=== PATIENT | male | born 1965 | race Caucasian/White ===

== ENCOUNTER 2020-10-12 17:41 | Emergency (ER) | payer OTHER ==
[~2020-10-12] VITALS: Ht 193 cm; Wt 170.1 kg
[~2020-10-12 17:41] MED LIST: BISHYD10; CRUTCH USE; HYDACE5 PO; IBUP800 PO
== END 2020-10-12 20:53 | disposition home or self-care (01) ==
LOC: ER 17:41
DX: U07.1 COVID-19 (principal); I10 Essential (primary) hypertension; E11.9 Type 2 diabetes mellitus without complications; Z91.013 Allergy to seafood; Z79.899 Other long term (current) drug therapy
CPT/HCPCS: 99284-25; M0243; Q0243

== ENCOUNTER 2022-07-18 05:42 | Inpatient (IN) | payer OTHER ==
[2022-07-18] VITALS (9 sets, daily range): BP systolic 120–151; BP diastolic 89–118
[~2022-07-18] VITALS: Ht 193 cm; Wt 151.0 kg
[2022-07-18] MEDS ORDERED: ROSUVASTATIN CA10 MG PO (06:09)
[2022-07-18 06:13] LABS: BASOPHILS ABSOLUTE AUTO 0.04 K/mm3 (0.00-0.23); BASOPHILS PERCENT AUTO 1 % (0-2); EOSINOPHILS ABSOLUTE AUTO 0.09 K/mm3 (0.00-0.68); EOSINOPHILS PERCENT AUTO 1 % (0-6); Hematocrit 51.6 % (37.0-53.0); Hemoglobin 17.9 g/dL (13.5-17.5); IMMATURE GRAN ABSOLUTE AUTO 0.04 K/mm3 (0.00-0.10); IMMATURE GRAN PERCENT AUTO 1 % (0-1); LYMPHOCYTES ABSOLUTE AUTO 2.01 K/mm3 (0.84-5.20); LYMPHOCYTES PERCENT AUTO 23 % (21-46); MONOCYTES ABSOLUTE AUTO 0.68 K/mm3 (0.16-1.47); MONOCYTES PERCENT AUTO 8 % (4-13); Mean Corpuscular HGB Conc 34.7 g/dL (31.5-36.5); Mean Corpuscular Volume 89 fL (80-100); Mean Platelet Volume 11.6 fL (9.1-12.4); NEUTROPHILS ABSOLUTE AUTO 5.85 K/mm3 (1.96-9.15); NEUTROPHILS PERCENT AUTO 67 % (41-73); Platelet Count 153 K/mm3 (150-400); RDW Coefficient Variation 12.8 % (11.7-14.2); RDW Standard Deviation 41.6 fL (35.1-46.3); Red Blood Cell Count 5.77 M/mm3 (4.30-5.90); White Blood Cell Count 8.71 K/mm3 (4.00-11.30)
[2022-07-18 06:33] LABS: Albumin, Blood 4.1 g/dL (3.4-5.0); Albumin/Globulin Ratio 1.1 (0.8-1.8); Bilirubin, Total 0.7 mg/dL (0.1-1.0); Bun/Creatinine Ratio 12.9 (12.0-20.0); Calcium, Blood 9.2 mg/dL (8.5-10.1); Creatinine, Blood 0.85 mg/dL (0.60-1.20); Globulin, Blood 3.7 g/dL (2.2-4.0); Magnesium, Blood 2.1 mg/dL (1.6-2.4); Potassium, Blood 4.2 mmol/L (3.5-5.5); Total Protein, Blood 7.8 g/dL (6.4-8.2)
--- NOTE | 2022-07-18 09:36 | NUR ---
PT ARRIVED TO PCU ROOM 16 FROM THE ER. PT ABLE TO INDEPENDENTLY TRANSFER FROM STRETCHER TO HOSPITAL BED. PT ACCOMPANIED BY SPOUSE REYNOLD. PT CONSENTED THIS 2ND YEAR [facility] [place], [place] RN STUDENT TO PARTICIPATE IN CARE TODAY.
[2022-07-18 09:54] LABS: Anti-Xa UFH, PHA Monitoring <0.10 IU/mL; International Normalized Ratio 1.04; Prothrombin Time Results 10.9 Sec (9.7-11.5)
--- NOTE | 2022-07-18 11:52 | NUR ---
PT AMBULATED TO THE BATHROOM AND HEART RATE WENT UP TO 150S BPM. PT DENIED CHEST PAIN AT TIME OF EVENT. REPORTED MILD SOB ON EXERTION AND RECOVERED WITH REST WITHIN A COUPLE MINUTES. THIS BAGGER AND STOCK HANDLER HELPER WAS NOTIFIED OF INCREASED RATE BY CABINET MOUNTER JANEY ADKINS.
--- NOTE | 2022-07-18 16:42 | NUR ---
SPOKE WITH DR VEGAS REGARDING PATIENT BLOOD PRESSURE, NEW ORDERS RECEIVED
--- NOTE | 2022-07-18 16:50 | NUR ---
PT AMBULATED TO THE BATHROOM AND HEART RATE INCREASED TO THE 150S. PT DENIED SHORTNESS OF BREATH OR CHEST PAIN DURING EVENT. PT HEART RATE RETURNED TO BASELINE WITHIN A COUPLE MINUITES OF REST IN BED. DISCUSSED WITH PT THE NEED TO USE BEDSIDE URINAL TO PREVENT EXERTION AND RAISED HEART RATE. THIS STUDENT WAS NOTIFIED OF EVENT VIA TELEMETY ROLL SCALE MAN.
--- NOTE | 2022-07-18 17:49 | NUR ---
END OF SHIFT SUMMARY. PT TOLERATING PO INTAKE AT THIS TIME. PT DENIES SOB OR CHEST PAIN SINCE FIRST ARRIVAL TO THE UNIT. PT AMBULATED TO THE BATHROOM X2 WITH HEART RATE RAISING TO THE 150S. RETURNED TO BASELINE AFTER 2-3 MINUTES.
--- NOTE | 2022-07-18 17:53 | NUR ---
HEPARIN DRIP RATE RUNNING AT 15 UNITS/33.9MLS.
--- NOTE | 2022-07-18 18:54 | NUR ---
PT BLOOD PRESSURE WAS 150/118 MM/HG. TELEPHONE CALL PLACED TO DR. VEGAS, NEW ORDERS RECEIVED.
--- NOTE | 2022-07-18 22:06 | NUR ---
ASSUMED CARE OF PATIENT AT 191 PATIENT LYING IN BED WATCHING TV. AND SON SITTING AT BEDSIDE. HEPARIN GTT INF @ 15 UNITS/KG/HR-VERIFIED WITH DAMIÁN FRANKLIN RN AND MAGAN SMALLS AT BEDSIDE. PATIENT DENIED CP AT THIS TIME. WATER AND BELONGINGS ON BEDSIDE TABLE. REPORT COMPLETED WITH DAMIÁN FRANKLIN RN.
[2022-07-19] VITALS (7 sets, daily range): BP systolic 118–138; BP diastolic 92–103
--- NOTE | 2022-07-19 05:10 | NUR ---
SHIFT SUMMARY PATIENT SLEPT THROUGHOUT SHIFT. HEPARIN REMAINS AT 15 UNITS/KG/HR. USED URINAL AT BEDSIDE WITH HR INCREASING TO 150'S DURING EXERTION, OTHERWISE HR IS LESS THAN 100 WHEN RESTING. DENIED CP AND SOB DURING SHIFT. NO OTHER CHANGES.
--- NOTE | 2022-07-19 09:08 | NUR ---
DR. VEGAS IN ROOM AT 0830,PLAN FOR 1ST PART OF STRESS TEST AT 1300 TODAY, 2ND PART TOMORROW. PT NPO EXCEPT FOR WATER, STARTED AT 0900.
--- NOTE | 2022-07-19 13:11 | NUR ---
NUCLEAR [employer] TECH IN ROOM AT ABOUT 1300 FOR RESTING STRESS TEST INJECTION. PT NOW ABLE TO EAT AND GIVEN LUNCH.
--- NOTE | 2022-07-19 17:51 | NUR ---
SUMMARY: NO ACUTE CHANGE TODAY. VSS, A/O, DENIED DIZZINESS, CP/PRESSURE. AMBULATORY IN ROOM WITH SBA. HR INCREASES TO 140-150'S WITH ACTIVITY,AT REST HR IS 90-LOW 100'S. PT IS VOIDING, EATING AND HAD BM TODAY. PLAN IS FOR NPO AT 0000 AND STRESS TEST TOMORROW. PT USING CALL LIGHT APPROPRIATELY, PT AT BEDSIDE TODAY.
--- NOTE | 2022-07-19 20:06 | NUR ---
ASSUMED CARE OF PT AT 1900 PT RESTING IN ROOM WITH SPOUSE AND FAMILY. A/O X4. VITALS WNL WITH EXCEPTION OF SLIGHT HTN. DENIES CP OR PRESSURE. DENIES N/V/D. SEE FULL ASSESSMENT FOR FURTHER INFORMATION.
[2022-07-20] VITALS (8 sets, daily range): BP systolic 118–143; BP diastolic 82–107
--- NOTE | 2022-07-20 06:23 | NUR ---
END OF SHIFT SUMMARY PT RESTED ALL NIGHT WITH MINIMAL TRIPS TO RESTROOM. HR IN 170'S WHEN UP OUT OF BED. NPO SINCE MIDNIGHT FOR PREP OF STRESS TEST THIS AM. HEP AT 15 UNITS/33.9 MLS/HR. >95% ON RA. WILL CONTINUE TO MONITOR UNTIL REPORT GIVEN TO AM RN.
--- NOTE | 2022-07-20 12:05 | NUR ---
AT AROUND 1050, PT WAS UP IN ROOM AND AMBULATED TO THE BATHROOM FOR A SPONGE BATH VIA SHOWER CHAIR. PT HR INCREASED TO THE 140-150'S WHILE AMBULATING. PT SAT IN CHAIR HE WASHED HIMSELF, HR IN THE 130'S WHILE SITTING AND CLEANING. PT STOOD BRIEFLY WHILE CLEANING, PT HR INCREASED TO 17-180'S WHILE STANDING. PT REPORTED NO LIGHTHEADEDNESS, NO SOB, AND NO CHEST PRESSURE. WHEN ASKED IF HE COULD FEEL HIS HEART RACING, PT STATED THAT HE DID "NOTICE A CHANGE" IN HIS HEART. PT SAT DOWN FOR A REST PER THIS RN REQUEST. HR RETURNED TO THE 130-140'S ALMOST IMMEDIATELY WHEN SITTING. PT FINISHED CLEANING AND AMBULATED BACK TO HIS BED, ASMPTOMATIC HR IN THE 150'S. ONCE IN BED, PT HER DOWN TO 120'S. NO REPORT OF CHEST PRESSURE OR DISCOMFORT DURING THIS EPISODE.
--- NOTE | 2022-07-20 13:10 | NUR ---
UPDATE AT 1300, PT IN BATHROOM FOR A BM. PT HR INCREASED TO 150-S. DR HAWTHORNE AND THIS RN ENTERED PT ROOM PT WAS FINISHING. PT HR TACHED UP TO 188 BRIEFLY, DR PRESENT DURING THIS EPISODE. PT RETURNED TO BE REPORTING NO SYMPTOMS. ONCE PT WAS IN BED FOR A MOMENT, HE RESPONDED "WELL I GUESS I AM A LITTLE OUT OF BREATH COMPARED TO NORMAL." UPDATED PT ON NUCLEAR TEST RESULTS. PT INFORMED BY THAT SAFETY INVESTIGATOR HS BEEN CONSULTED AND WILL BE BY TO DISCUSS FURTHER TREATMENTS.
--- NOTE | 2022-07-20 18:05 | NUR ---
SHIFT SUMMARY PT A/OX4 AND COOPERATIVE OF CARE. PT HR REMAINED A-FIB WITH RATES 80-100 WHILE AT REST AND 120-180'S WHEN AMBULATING. HR RETURNS TO LOW 100'S QUICKLY ONCE PT IS RESTING. OTHER VSS THROUGHOUT SHIFT WITH 02 SATS IN THE 90'S ON RA. NO REPORT OF CHEST PAIN OR PRESSURE EVEN WHEN HR IS ELEVATED DURING THIS SHIFT. PT DID REPORT MINOR SOB WHEN HE WAS UO IN ROOM. PT AT BEDSIDE MOST OF SHIFT. STRESS TEST COMPLETED TODAY, SEE RESULTS. CARDIOLOGY CONSULTED AND TRACTOR OPERATOR SPOKE WITH PT AND PT'S . PLAN IS TO TREAT WITH MEDS AND DIET. PT WAS UP TO BATHROOM MULTIPLE TIMES, INDEPENDENT, HELPED WITH IV POLE. HEPARIN RUNNING PER ORDER.
--- NOTE | 2022-07-21 05:15 | NUR ---
Assumed care of patient at 1900, A/Ox4, independent in room. Afib on tele 's. States he has much less SOB with activity from when he first came in. Denies current CP/pressure, VSS. Trace BLE edema with associated brown discoloration. Heparin running per emar. No acute changes. Will report to keisha CARRERO.
[2022-07-21 07:41] VITALS: BP 138/96
--- NOTE | 2022-07-21 08:31 | NUR ---
AM NOTE Pt alert, oriented x4; calm and cooperative with care. Pt resting in bed, move ind in room and in bed. Pt denies pain, chest pain/pressure, sob, nausea, dizziness and numb/tingling. Spo2 >90% on ra, breathing even and unlabored. Tele afib 70-90's, bp stable. Abd soft, nontender with normoactive bt noted. Trace edema noted to ble. Other vss. No other acute changes noted. Will continue to monitor.
--- NOTE | 2022-07-21 09:40 | NUR ---
Dr Garces at bedside, new orders to increased metoprolol succ to 75 mg/day.
--- NOTE | 2022-07-21 09:48 | NUR ---
Report given to RN assuming care of patient. Pt transfering via wheelchair
[2022-07-21 09:57] LABS: CHOL/HDL RATIO 3.4; Cholesterol 130 mg/dL (50-200); HDL Cholesterol 38 mg/dL (>39); LDL/HDL RATIO 1.8; Low Density Lipoprotein Chol 67 mg/dL (0-110); Triglycerides 126 mg/dL (30-160); Very Low Density Lipoprot Chol 25 mg/dL (6-32)
--- NOTE | 2022-07-21 10:00 | NUR ---
PT ARRIVED TO UNIT FROM PCU. VSS, LOW TEMP NOTED-PT STATES THAT IS BASELINE. DENIES CP/PRESSURE. TELE IN PLACE
[2022-07-21 10:07] VITALS: BP 147/96
[2022-07-21 15:30] VITALS: BP 136/93
--- NOTE | 2022-07-21 17:50 | NUR ---
SHIFT SUMMARY PT A&OX4 AND IN PLEASENT MOOD T/O SHIFT. AT BEDSIDE T/O SHIFT. TELE IN PLACE, TACHED UP TO 160'S WHILE UP TO BATHROOM REPORTED TO DR-METOPROLOL ADJUST. TOLERATING PO INTAKE WELL AT THIS TIME. DENIES CP/PRESSURE. VSS. CALL LIGHT W/IN REACH.
--- NOTE | 2022-07-21 18:16 | NUR ---
PT HR INCREASED TO 130'S W/ AMBULATION AFTER ADDITIONAL 25 MG METOPROLOL
[2022-07-21 19:20] VITALS: BP 134/92
[2022-07-22 04:08] VITALS: BP 124/92
[2022-07-22 04:29] LABS: BASOPHILS ABSOLUTE AUTO 0.04 K/mm3 (0.00-0.23); BASOPHILS PERCENT AUTO 1 % (0-2); EOSINOPHILS ABSOLUTE AUTO 0.09 K/mm3 (0.00-0.68); EOSINOPHILS PERCENT AUTO 1 % (0-6); IMMATURE GRAN ABSOLUTE AUTO 0.03 K/mm3 (0.00-0.10); IMMATURE GRAN PERCENT AUTO 0 % (0-1); LYMPHOCYTES ABSOLUTE AUTO 1.62 K/mm3 (0.84-5.20); LYMPHOCYTES PERCENT AUTO 22 % (21-46); MONOCYTES ABSOLUTE AUTO 0.57 K/mm3 (0.16-1.47); MONOCYTES PERCENT AUTO 8 % (4-13); Mean Corpuscular HGB 30.9 pg (26.0-34.0); Mean Corpuscular HGB Conc 34.8 g/dL (31.5-36.5); Mean Corpuscular Volume 89 fL (80-100); Mean Platelet Volume 11.9 fL (9.1-12.4); NEUTROPHILS PERCENT AUTO 69 % (41-73); Platelet Count 122 K/mm3 (150-400); RDW Coefficient Variation 12.6 % (11.7-14.2); RDW Standard Deviation 41.2 fL (35.1-46.3); Red Blood Cell Count 5.17 M/mm3 (4.30-5.90); White Blood Cell Count 7.45 K/mm3 (4.00-11.30)
--- NOTE | 2022-07-22 04:33 | NUR ---
SHIFT SUMMARY: CATE IS A&OX4. VSS, NO ACUTE EVENTS OVERNIGHT. HE IS INDEPENDENT IN THE ROOM AND HAS DENIED ANY DIZZINESS OR LIGHTHEADEDNESS. TELEMETRY IN PLACE, TECH HAS CALLED THIS SHIFT AND REPORTED HR IN THE 140-150'S (INCREASE IN HR CONINCIDED WITH PT'S AMBULATION TO THE BATHROOM) WHICH RETURNED TO 80'S SHORTLY AFTER PT RETURNED TO BED. PT HAS DENIED PAIN THIS SHIFT. HE IS LYING IN BED WITH THE CALL LIGHT IN REACH. WCTM UNTIL REPORT IS GIVEN TO DAY SHIFT RN.
[2022-07-22 04:41] LABS: Bun/Creatinine Ratio 12.5 (12.0-20.0); Calcium, Blood 8.9 mg/dL (8.5-10.1); Creatinine, Blood 0.8 mg/dL (0.60-1.20); Magnesium, Blood 2.2 mg/dL (1.6-2.4); Potassium, Blood 4.2 mmol/L (3.5-5.5)
[2022-07-22 07:54] VITALS: BP 141/95
[2022-07-22 15:10] VITALS: BP 113/86
[2022-07-22] MEDS ORDERED: ASPI81CH PO (15:36)
[2022-07-22] MEDS ORDERED: ELIQUIS5 M2 PO (15:36)
[2022-07-22] MEDS ORDERED: Prinivil10 MG PO (15:36)
[2022-07-22] MEDS ORDERED: METO100ER PO (15:37)
[2022-07-22] MEDS ORDERED: DILT30 PO (15:38)
[2022-07-22] MEDS ORDERED: CARTIA XT PO (15:40)
--- NOTE | 2022-07-22 16:45 | NUR ---
DISCHARGE PT A&OX4 AT BEDSIDE. PT VERBALIZED UNDERSTANDING TO DIRECTION. SPOUSE TO PROVIDE TRANSPORT. VSS. [id number] W/ AMBULATION. TOLERATING PO INTAKE. DENIES CP/PRESSURE.
== END 2022-07-22 16:46 | disposition home or self-care (01) | DRG 309 ==
LOC: ER 05:42 → PCU 08:34 → MEDS 08:34 → PCU 09:32 → MEDS 07-21 10:00 → ENPENDDIS 07-22 13:32 → MEDS 07-22 16:46
PROVIDERS: Emergency Medicine; Internal Medicine; ADMIT Internal Medicine
DX: I48.91 Unspecified atrial fibrillation (principal); Z68.41 Body mass index [BMI] 40.0-44.9, adult; R07.89 Other chest pain; I10 Essential (primary) hypertension; E11.9 Type 2 diabetes mellitus without complications; E78.00 Pure hypercholesterolemia, unspecified; E66.01 Morbid (severe) obesity due to excess calories; R94.39 Abnormal result of other cardiovascular function study; D75.1 Secondary polycythemia; G47.33 Obstructive sleep apnea (adult) (pediatric); F17.290 Nicotine dependence, other tobacco product, uncomplicated; Z98.890 Other specified postprocedural states; Z91.013 Allergy to seafood; Z79.01 Long term (current) use of anticoagulants; Z79.899 Other long term (current) drug therapy
CPT/HCPCS: 36415; 71046; 78452; 80048; 80053; 80061; 82947; 83735; 83880; 84443; 84484; 85025; 85520; 85610; 85730; 93005; 93010; 93017; 93306; 94762; 99285-25; A9270; A9500; J0706; J1644; J2785; J7030